=== PATIENT | female | born 1970 | race Native Hawaiian/Other Pacific Islander ===

== ENCOUNTER 2017-04-01 06:02 | Emergency (ER) | payer OTHER ==
[~2017-04-01] VITALS: Ht 167.6 cm; Wt 117.0 kg
[2017-04-01] MEDS ORDERED: NEURONTIN 100M100 MG PO (06:15)
[2017-04-01] MEDS ORDERED: DICL75TA4 PO (06:16)
[2017-04-01] MEDS ORDERED: ROBAXIN500 MG PO (06:16)
[2017-04-01] MEDS ORDERED: ZANTAC300 MG PO (06:17)
[2017-04-01] MEDS ORDERED: [UNRECOGNIZED DRUG - REMARK] PO (06:17)
[2017-04-01] MEDS ORDERED: PROVENTIL IN (06:18)
[2017-04-01 06:19] VITALS: TEMP 97.8
[2017-04-01 06:41] LABS: PLATELET COUNT 263 K/uL (152-353)
[2017-04-01 06:55] VITALS: BP 114/62
== END 2017-04-01 07:20 | disposition home or self-care (01) ==
LOC: ED 06:02
DX: E05.90 Thyrotoxicosis, unspecified without thyrotoxic crisis or storm (principal); R00.0 Tachycardia, unspecified; T39.395A Adverse effect of other nonsteroidal anti-inflammatory drugs [NSAID], initial encounter; Y92.098 Other place in other non-institutional residence as the place of occurrence of the external cause
CPT/HCPCS: 36415; 84443; 85027; 93005; 96360; 96375; 99284; J1200; J2930

== ENCOUNTER 2017-04-22 04:25 | Outpatient (CLI) | payer OTHER ==
[~2017-04-22 04:25] MED LIST: DICL75TA4 PO; NEURONTIN 100M100 MG PO; PROVENTIL IN; ROBAXIN500 MG PO; ZANTAC300 MG PO; [UNRECOGNIZED DRUG - REMARK] PO
== END 2017-04-22 04:39 | disposition short-term general hospital (02) ==
LOC: AMB 04:25
DX: L50.0 Allergic urticaria (principal); T78.49XA Other allergy, initial encounter
CPT/HCPCS: A0425; A0427

== ENCOUNTER 2017-04-22 04:43 | Emergency (ER) | payer OTHER ==
[~2017-04-22] VITALS: Ht 167.6 cm; Wt 118.8 kg
[2017-04-22 05:25] VITALS: BP 103/66; TEMP 97.7
== END 2017-04-22 05:29 | disposition home or self-care (01) ==
LOC: ED 04:43
DX: L50.9 Urticaria, unspecified (principal)
CPT/HCPCS: 96374; 96375; 99284; J1200; J2930

== ENCOUNTER 2019-04-13 05:34 | Emergency (ER) | payer OTHER ==
[~2019-04-13] VITALS: Ht 165.1 cm; Wt 121.1 kg
[2019-04-13 07:15] VITALS: BP 115/81; TEMP 98
== END 2019-04-13 07:15 | disposition home or self-care (01) ==
LOC: ED 05:34
DX: J09.X2 Influenza due to identified novel influenza A virus with other respiratory manifestations (principal)
CPT/HCPCS: 87502; 87651; 94664; 99283